=== PATIENT | male | born 2000 | race American Indian/Alaskan Native ===

== ENCOUNTER 2021-03-13 17:16 | Emergency (ER) | payer SELFPAY ==
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
== END 2021-03-13 20:08 | disposition home or self-care (01) ==
LOC: ED 17:16
CPT/HCPCS: 99282